=== PATIENT | female | born 1985 | race Caucasian/White ===

== ENCOUNTER 2017-10-28 11:40 | Emergency (ER) | payer OTHER ==
[~2017-10-28] VITALS: Ht 162.6 cm; Wt 90.1 kg
[2017-10-28 11:46] VITALS: BP 123/81
== END 2017-10-28 12:16 | disposition home or self-care (01) ==
LOC: ED 12:10
DX: J02.9 Acute pharyngitis, unspecified (principal); F17.200 Nicotine dependence, unspecified, uncomplicated; R51 Headache; R50.9 Fever, unspecified
CPT/HCPCS: 99283

== ENCOUNTER 2017-11-05 02:53 | Emergency (ER) | payer OTHER ==
[~2017-11-05] VITALS: Ht 162.6 cm; Wt 92.8 kg
[2017-11-05 02:55] VITALS: BP 122/80
== END 2017-11-05 04:06 | disposition home or self-care (01) ==
LOC: ED 04:00
DX: L03.115 Cellulitis of right lower limb (principal)
CPT/HCPCS: 36415; 84550; 99285

== ENCOUNTER 2019-03-13 22:02 | Emergency (ER) | payer OTHER ==
[~2019-03-13] VITALS: Ht 165.1 cm; Wt 104.5 kg
[2019-03-13 22:08] VITALS: BP 123/82
[2019-03-13] MEDS ORDERED: DEXAMETHASONE 4 MG TABLET PO ONE (22:30)
--- NOTE | 2019-03-13 22:41 | NUR ---
PT C/O PRODUCTIVE COUGH X5 DAYS. PT DESCRIBES MUCUS "SNOT".
== END 2019-03-13 22:55 | disposition home or self-care (01) ==
LOC: ED 22:49
DX: J20.8 Acute bronchitis due to other specified organisms (principal); B34.9 Viral infection, unspecified
CPT/HCPCS: 71046; 99283